=== PATIENT | female | born 1990 | race African-American/Black ===

== ENCOUNTER 2018-01-23 14:58 | Emergency (ER) | payer OTHER ==
[~2018-01-23] VITALS: Ht 160 cm; Wt 62.9 kg
[~2018-01-23 14:58] MED LIST: MOTRIN600 MG PO; ROBITUSSIN AC,T10 ML PO; SPRINTEC1 EACH PO
[2018-01-23 17:26] VITALS: BP 128/70
== END 2018-01-23 17:27 | disposition home or self-care (01) ==
LOC: EME 14:58
DX: F41.9 Anxiety disorder, unspecified (principal); F43.23 Adjustment disorder with mixed anxiety and depressed mood
CPT/HCPCS: 90839; 99281; 99284